=== PATIENT | male | born 2000 | race Caucasian/White ===

== ENCOUNTER 2022-10-31 12:14 | Emergency (ER) | payer SELFPAY ==
--- NOTE | 2022-10-31 12:56 | XR_ITS ---
WS: [id number] XR finger RT min 2V 22415 REASON FOR EXAM: trauma; thumb FINDINGS: Soft tissue injury tip of the thumb. No underlying fracture of the distal phalanx of the thumb. Remaining bony and joint structure of the thumb is unremarkable. XR/XR finger RT min 2V 96265 IMPRESSION: No acute bone or joint abnormality.
--- NOTE | 2022-10-31 12:56 | ED_ITS ---
HPI - Wound/Laceration General: Chief Complaint: Wound/Laceration Stated Complaint: right thumb lac Time Seen by Provider: 10/31/22 12:15 Source: patient Mode of arrival: ambulatory Limitations: no limitations History of Present Illness: Patient is a 22-year-old male presents to ED today for evaluation of a right thumb injury that he sustained just prior to arrival. 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 Last tetanus unknown. Onset (ago): hour(s) Place: work Patient tetanus UTD: No Context: accidental Associated symptoms: Reports no associated symptoms Treatments prior to arrival: bandage Review of Systems Musc: Reports: extremity pain (R thumb) Skin/Breast: Reports: other (laceration/distal tip amputation R thumb) Physical Exam Const: COMMON NORMALS: no acute distress, average body habitus, patient oriented x3, no limitations, healthy appearing, alert and well nourished GENERAL APPEARANCE: cooperative Extremity: GENERAL: Yes normal exam except as noted RIGHT UPPER EXTREMITY: Yes hand & digits OTHER: pt has a distal pad/tip amputation of R thumb; no nail damage; patient has tip with him but there is nothing that can be re-vascularized Neuro: COMMON NORMALS: patient oriented x3, moves all extremities, no focal motor deficits and no sensory deficits noted SENSORIUM/ORIENTATION: Yes alert Skin: NARRATIVE SKIN EXAM: see extremity assessment MDM - Wound/Laceration Medical Decision Making Patient with a distal finger pad tip amputation. There is no bony involvement nor is there any exposed bone present. Patient does bring with him the distal tip however it is not going to be viable. His wound will need to heal by secondary intent. Tetanus was updated. I will go ahead and place him on antibiotics. Wound was dressed and wound care discussed at home. Will have him follow up with PCP. They can refer to wound care if needed. Lab Data Radiology Impressions Finger X-Ray 10/31/22 12:56 IMPRESSION: No acute bone or joint abnormality. Discharge Plan Discharge Patient Disposition: Home Clinical Impression: Amputation of tip of finger Qualifiers: Encounter type: initial encounter Qualified Code(s): S68.119A - Complete traumatic metacarpophalangeal amputation of unspecified finger, initial encounter Condition: Stable Prescriptions: New cephalexin 500 mg capsule 500 mg PO Q6H 7 Days Qty: 28 0RF Discharge Orders: Discharge ED (Routine); Ordered 10/31/22 Ordered By: Molly Echols Referrals: Whitley Mccormack FNP [Primary Care Provider] - Patient Instructions: Finger Amputation (ED) Activity Restrictions/Additional Instructions: As we discussed wound needs to stay dressed with nonstick dressings given to you today. You need to follow-up with primary care. Wound will have to heal by secondary intent and this may take several weeks/months to fully heal. Monitor for signs of infection such as redness, swelling, purulent or foul-smelling drainage. Please seek medical reevaluation if these occur. Coding Level of Care Code ED [employer] for Jack Nath
[2022-10-31] MEDS: tetanus-dipt-pertussis 0.5 mL SDV IM (13:18)
== END 2022-10-31 14:09 | disposition home or self-care (01) ==
PROVIDERS: Emergency Provider Physician Assistant; PCP Nurse Practitioner Family
DX: S68.011A Complete traumatic metacarpophalangeal amputation of right thumb, initial encounter (principal); W31.82XA Contact with other commercial machinery, initial encounter; Y92.89 Other specified places as the place of occurrence of the external cause; Y99.0 Civilian activity done for income or pay; Z23 Encounter for immunization
CPT/HCPCS: 73140; 90471; 90715; 99283